=== PATIENT | male | born 1980 | race Caucasian/White ===

== ENCOUNTER 2018-12-22 09:14 | Emergency (ER) | payer OTHER, SELFPAY ==
[2018-12-22 09:14] VITALS: BP 156/87; PULSE 65; RESP 19; TEMP 36.5; O2SAT 100; BMI 25.1
--- NOTE | 2018-12-22 09:34 | RAD_ITS ---
STUDY: X-RAY CHEST REASON FOR EXAM: Male, 38 years old. 2 week history of productive cough. TECHNIQUE: PA and lateral views of the chest. COMPARISON: None. FINDINGS: The lungs are clear and expanded. There is no demonstrated pleural abnormality. Normal size heart. Normal mediastinum and chun. Normal visualized pulmonary arteries. Normal visualized aortic arch and descending thoracic aorta. Normal visualized thoracic spine. Normal visualized ribs, clavicles, and shoulders. There is no demonstrated abnormality of the visualized soft tissue structures of the upper abdomen. RAD/Chest PA and Lateral IMPRESSION: Normal x-ray examination of the chest. Electronically Signed: Germán Craig, at 10:47 EDT , Service support ,
[2018-12-22] MEDS: 0.9% Normal Saline 1,000 ML 1000 ML IV (09:45)
[2018-12-22 09:55] LABS: Bacteria 0 SEEN /hpf (None Seen); Mucous, Urine 0 SEEN /hpf (<or=2+); Red Blood Cells-Urine 0 SEEN /hpf (0-5); Squamous Epithelial Cells - UA 0 SEEN /hpf (0-5); White Blood Cells 0 SEEN /hpf (0-5)
[2018-12-22 09:59] LABS: Absolute Lymphocyte Count 2.33 X10^3/uL (0.83-4.51); Absolute Neutrophil Count 3.6 X10^3/uL (2.0-7.7); Basophil# 0.05 X10^3/uL; Basophil% 0.7 % (0-1); Eosinophil# 0.14 X10^3/uL; Eosinophils% 2.1 % (0-5); Hematocrit 50.3 % (40-54); Hemoglobin 17.2 g/dL (13.0-16.5); Lymphocyte # 2.33 X10^3/ul (4.0); Lymphocyte % 34.7 % (19-41); Mean Corp Hgb Conc 34.2 g/dL (32-36); Mean Corpuscular Hgb 31.1 pg (27.0-32.0); Mean Platelet Vol. 8.9 fl (6.2-12.0); Monocyte# 0.52 X10^3/uL; Monocyte% 7.7 % (0-10); NRBC Flagged by Analyzer 0 % (0-5); Neutrophil # 3.64 X10^3/uL (2.7-7.7); Neutrophil % 54.4 % (47-70); Platelet Count 265 K/mm3 (150-450); RBC Distribution Width CV 12.2 % (11.6-14.6); RBC Distribution Width SD 40.2 fl (35.1-43.9); Red Blood Count 5.53 M/mm3 (4.6-6.2); White Blood Count 6.7 K/mm3 (4.4-11.0)
[2018-12-22 10:01] LABS: Color, Urine Yellow (Yellow); Glucose, Dipstick Normal (Normal); Ketone-Dipstick Negative (Negative); Leukocyte Esterase-Dipstick Negative /ul (Negative); Nitrite-Dipstick Negative (Negative); Occult Blood-Urine Negative /ul (Negative); Protein-Dipstick Negative (Negative); Urine Bilirubin Dipstick Negative (Negative); Urine Clarity Sl. Cloudy (Clear); Urine Urobilinogen Normal (Normal); Urine pH 6.5 (5.0 - 8.0)
[2018-12-22 10:12] LABS: ALB/GLOB Ratio 1.3 RATIO (0.9-2.4); AST(SGOT) 22 U/L (15-37); Alanine Aminotransfer ALT/SGPT 40 U/L (16-61); Albumin, Serum 4.3 g/dL (3.2-5.0); Alkaline Phosphatase 86 U/L (45-117); Anion Gap 4 (5-15); BUN 13 mg/dL (7-18); BUN/Creat Ratio 11.9 RATIO (10-20); Calcium,Total 9.1 mg/dL (8.5-10.1); Chloride 106 mmol/L (98-107); Creatinine, Serum 1.09 mg/dL (0.70-1.30); EST Glomerular Filtration Rate 81 mL/min (>60); Est Glom Filt Rate - Afr Amer 98 mL/min (>60); Estimated Creatinine Clearance 95.81 ml/min; Globulin 3.4 g/dL (2.2-4.2); Glucose 107 mg/dL (74-106); Potassium 4.2 mmol/L (3.5-5.1); Protein, Total 7.7 g/dL (6.4-8.2); Sodium Level 141 mmol/L (136-145)
--- NOTE | 2018-12-22 10:51 | ED.VISSUMM ---
- ER Visit Summary Date of Service: 12/22/18 Chief Complaint: Weakness, nausea History of Present Illness: The patient is a 38 M with nausea. He states for the past 3 days he has had intermittent issues with weakness. He states he feels weak all over. No lateralizing symptoms. Denies slurred speech or facial droop. He feels mildly lightheaded. He tells me that last week he had a sinus infection but thought it was improving this week but then the episodes of weakness started. He has had a cough that is nonproductive. Denies any fevers. He has no other medical problems. Physical Examination: Vital signs are reviewed. HEENT exam unremarkable. Heart is regular rate and rhythm. Lungs are clear to auscultation bilaterally. Abdomen soft nontender. Extremities have no edema. Skin exam has no rashes. His neurologic exam is normal. I watched him ambulate and his ambulation is normal as well. Test Results: Laboratory studies are normal except for hemoglobin of 17.2. Glucose 107. Urinalysis normal. Chest x-ray per my interpretation reveals nothing acute. Emergency Department Course and Treatment: The patient was given a liter of IV fluids. Family was concerned that he may need a head scan due to this lightheadedness. He has a normal neurologic examination. His pupils are equal. I do feel that this is necessary at this time. He has a nonfocal examination with normal laboratory studies and chest x-ray. He will need to follow-up with the PCP if his symptoms occur as an outpatient. I will give him a PCP to follow-up with. Treatment Plan: [] Disposition: Discharge Impression: Weakness This note was generated with [employer] dictation software. It may contain incorrect words, spelling, and punctuation that were not noted in review of the chart prior to signing ED Disposition - Plan for ED Patient: Referrals: Care Physician,No Primary [Primary Care Provider] -
[2018-12-22 11:24] VITALS: BP 129/77; PULSE 62; RESP 15; O2SAT 98
== END 2018-12-22 11:26 | disposition home or self-care (01) ==
PROVIDERS: Emergency Provider Emergency Medicine
DX: R53.1 Weakness (principal); Z72.0 Tobacco use
CPT/HCPCS: 71046; 80053; 81001; 85025; 96360; 99283; J7030; A4216

== ENCOUNTER → 2018-12-23 | Outpatient (CLI) | payer OTHER, SELFPAY ==
[2018-12-22 09:14] VITALS: BMI 25.1
[2018-12-23 17:21] LABS: Absolute Lymphocyte Count 1.89 X10^3/uL (0.83-4.51); Basophil# 0.05 X10^3/uL; Basophil% 0.8 % (0-1); Eosinophil# 0.07 X10^3/uL; Eosinophils% 1.1 % (0-5); Hematocrit 47.4 % (40-54); Hemoglobin 16.2 g/dL (13.0-16.5); Lymphocyte # 1.89 X10^3/ul (4.0); Lymphocyte % 28.9 % (19-41); Mean Corp Hgb Conc 34.2 g/dL (32-36); Mean Corpuscular Hgb 31.2 pg (27.0-32.0); Mean Corpuscular Volume 91.3 fL (80-94); Monocyte# 0.55 X10^3/uL; Monocyte% 8.4 % (0-10); NRBC Flagged by Analyzer 0 % (0-5); Neutrophil # 3.95 X10^3/uL (2.7-7.7); Neutrophil % 60.3 % (47-70); Platelet Count 250 K/mm3 (150-450); Red Blood Count 5.19 M/mm3 (4.6-6.2); White Blood Count 6.5 K/mm3 (4.4-11.0)
[2018-12-23 17:47] LABS: Erythrocyte Sedimentation Rate < 1 mm/hr (0-15)
[2018-12-23 18:05] LABS: CRP < 2.90 mg/L (0.0-3.0); T4 Free Direct 0.91 ng/dL (0.76-1.46); Thyroid Stim Hormone (TSH) 1.06 uIU/mL (0.358-3.74)
[2018-12-24 10:04] LABS: CPK Total, Creatine Kinase 96 U/L (39-308)
[2018-12-26 16:29] LABS: EBV Acute VCA IgM < 36.0 U/mL (0.0-35.9); EBV Early Antigen IgG 42.1 U/mL (0.0-8.9); EBV Nuclear Antigen IgG > 600.0 U/mL (0.0-17.9)
== END | disposition home or self-care (01) ==
LOC: MTLAB 16:26 → LAB 16:55
PROVIDERS: Family Provider Nurse Practitioner; PCP Nurse Practitioner; Referring Provider Nurse Practitioner; Visit Provider Nurse Practitioner
DX: R53.1 Weakness (principal); G93.3 Postviral and related fatigue syndromes; R42 Dizziness and giddiness
CPT/HCPCS: 36415; 82550; 84439; 84443; 85025; 85652; 86140; 86663; 86664; 86665; 93225; 93226

== ENCOUNTER → 2019-01-06 | Outpatient (CLI) | payer OTHER, SELFPAY ==
[2018-12-22 09:14] VITALS: BMI 25.1
--- NOTE | 2019-01-06 07:46 | CT_ITS ---
STUDY: CT BRAIN WITHOUT CONTRAST REASON FOR EXAM: Male, 38 years old. Paresthesia. Tingling sensation in both arms and legs. RADIATION DOSAGE (If Supplied By Facility): CTDIvol = ( 44.99 ) mGy, DLP = ( 762.36 ) mGycm TECHNIQUE: Transaxial CT imaging of the brain was performed without administration of intravenous contrast material. Individualized dose optimization techniques were used for this CT. COMPARISON: No relevant priors. FINDINGS: Normal soft tissue structures. Normal calvarium. Normal size ventricles and extra-axial spaces for the patient's age. Normal white matter tracts of the cerebral hemispheres. Normal basal ganglia and thalami. Normal brainstem. Normal cerebellum. There is no intracranial hemorrhage. There are no findings of an acute ischemic infarction. There masses in both maxillary sinuses on the right. A mucous retention cyst versus polyps. There is complete opacification of the right sphenoid air cell with air-fluid level on the left. CT/Brain/Head without Contrast IMPRESSION: 1. Normal unenhanced CT scan of the brain. If there is continued concern for acute stroke, MRI is recommended. 2. Marked sinusitis. Electronically Signed: Bryce Delgado DO at 16:27 EDT Tel [phone], Service support ,
== END | disposition home or self-care (01) ==
LOC: CT 07:44
PROVIDERS: Family Provider Nurse Practitioner; PCP Nurse Practitioner; Referring Provider Nurse Practitioner; Visit Provider Nurse Practitioner
DX: R20.2 Paresthesia of skin (principal)
CPT/HCPCS: 70450

== ENCOUNTER → 2019-02-11 | Outpatient (CLI) | payer OTHER, SELFPAY | END | disposition home or self-care (01) | PROVIDERS: Family Provider Nurse Practitioner; PCP Nurse Practitioner; Referring Provider Otolaryngology; Visit Provider Otolaryngology | DX: J32.9 Chronic sinusitis, unspecified (principal) | CPT/HCPCS: 87070; 87205 ==

== ENCOUNTER 2019-02-14 01:00 | Emergency (ER) | payer OTHER, SELFPAY ==
[2019-02-14 01:01] VITALS: BP 177/115; PULSE 78; RESP 16; TEMP 36.9; O2SAT 97; BMI 27.7
--- NOTE | 2019-02-14 01:27 | CT_ITS ---
STUDY: CT BRAIN WITHOUT CONTRAST REASON FOR EXAM: Male, 38 years old. Headache, facial pain. RADIATION DOSAGE (If Supplied By Facility): CTDIvol = ( 44.99 ) mGy, DLP = ( 745.49 ) mGycm TECHNIQUE: Transaxial CT imaging of the brain was performed without administration of intravenous contrast material. Individualized dose optimization techniques were used for this CT. COMPARISON: 01/06/2019. FINDINGS: Normal soft tissue structures. Normal calvarium. Normal size ventricles and extra-axial spaces for the patient's age. Normal white matter tracts of the cerebral hemispheres. Normal basal ganglia and thalami. Normal brainstem. Normal cerebellum. There is no intracranial hemorrhage. There are no findings of an acute ischemic infarction. There is mucus retention cyst on the right with mucosal thickening on the left involving the bilateral maxillary sinuses. There is opacification of the right sphenoid sinus. CT/Brain/Head without Contrast IMPRESSION: Normal unenhanced CT scan of the brain. No acute intracranial hemorrhage or space-occupying lesion. Sequela of maxillary and sphenoid sinus disease. Electronically Signed: Fiona Nuno MD at 2:15 EST , Service support ,
--- NOTE | 2019-02-14 01:27 | CT_ITS ---
STUDY: CT MAXILLOFACIAL SINUSES REASON FOR EXAM: Male, 38 years old. Facial pain and headache. History of sinus/I surgery one week ago with balloon rhinoplasty. RADIATION DOSAGE (If Supplied By Facility): CTDIvol = ( 29.38 ) mGy, DLP = ( 393.19 ) mGycm TECHNIQUE: The patient was scanned in a multi detector CT scanner. High resolution axial imaging was performed without the administration of intravenous contrast material. Sagittal and coronal images were reconstructed. Individualized dose optimization techniques were used for this CT. COMPARISON: None. FINDINGS: FRONTAL SINUSES: Normal aeration, without mucosal inflammatory disease. ETHMOIDAL SINUSES: There is mucosal thickening involving the right ethmoid sinus. MAXILLARY SINUSES: Bilateral ground, lobular densities involving the maxillary sinuses suggestive of mucous retention cyst versus mucosal thickening. SPHENOIDAL SINUSES: There is complete opacification of the right sphenoid sinus. The left sphenoid sinus is clear. There is narrowing of the bilateral maxillary infundibuli due to underlying mucosal thickening. Otherwise normal uncinate processes, ethmoid bullae, and hiatus semilunaris. Normal bilateral middle turbinates. Normal bilateral inferior turbinates. Normal midline nasal septum. There is patency of the bilateral nasal airways. The visualized osseous structures are normal. The visualized bilateral orbital contents are normal. CT/Sinus/Facial Bone IMPRESSION: Sequela of the maxillary, sphenoid and ethmoidal sinus disease, more severe along the maxillary sinuses. Mild narrowing of the infundibula bilaterally with partial patency of the ostiomeatal complexes due to underlying mucosal thickening. Electronically Signed: Fiona Nuno MD at 2:18 EST , Service support ,
--- NOTE | 2019-02-14 01:28 | ED.VIS.GEN ---
History of Present Illness Chief Complaint: Headache Narrative: Patient is a 38-year-old male who presents with headache and pain behind his eyes. He is actually been having symptoms for 2 months. Family also complains of weakness. He has undergone an extensive outpatient work-up including testing for Guyon Núñez? syndrome and Lyme disease. He had a CT of the brain which showed sinusitis which they thought was causing his headache and facial pain. He actually had sinus surgery last week. However his symptoms have worsened since then. He complains of pain behind his eyes which is worse when he lays flat. He states that his eyes go bloodshot when I lay flat. The symptoms have been worse for 2 days. He has also been shaking. No fevers nausea vomiting diarrhea cough abdominal pain. They have been looking online and are concerned that he may have MS and want an MRI of the brain. They are also concerned that the sinusitis may have spread infection to his eyes or brain. Past Medical History - Allergies and Home Meds Allergies/Adverse Reactions: Allergies No Known Allergies Allergy (Verified 02/14/19 01:04) Primary Care Physician: Myra Smith NP-C [Primary Care Provider] - Past Medical History: - - Chronic sinusitis Surgical History: - - Sinus surgery Smoking Status: Former smoker Review of Systems All systems negative except as indicated General: Denies: Fever Cardiovascular: Denies: Chest pain Respiratory: Denies: Dyspnea Gastrointestinal: Denies: Nausea, Vomiting, Diarrhea Neurological: Reports: Headache, Weakness, - - Tremor Physical Exam Vital Signs/Narrative: Vital Signs Temp Pulse Resp BP Pulse Ox 02/14/19 01:01 98.4 F 78 16 177/115 H 97 Inital Vital Signs reviewed: Yes General: Well nourished Head: Normocephalic, Atraumatic Eyes: EOMI ENT: Moist mucous membranes Neck: Supple Cardiovascular: Regular rate, Regular rhythm Respiratory: No distress, CTA bilaterally Abdomen: Soft, Nontender Skin: Normal color Neurological: Alert, Oriented x3, Normal Strength, Normal Sensation, - - No focal or lateralizing neurological deficits Psychological: Tearful, - - Patient appears very anxious Diagnostic/Tx/Re-eval Impressions Brain CT 02/14/19 01:27 IMPRESSION: Normal unenhanced CT scan of the brain. No acute intracranial hemorrhage or space-occupying lesion. Sequela of maxillary and sphenoid sinus disease. Electronically Signed: Fiona Nuno MD at 2:15 EST , Service support , Facial/Sinus 02/14/19 01:27 IMPRESSION: Sequela of the maxillary, sphenoid and ethmoidal sinus disease, more severe along the maxillary sinuses. Mild narrowing of the infundibula bilaterally with partial patency of the ostiomeatal complexes due to underlying mucosal thickening. Electronically Signed: Fiona Nuno MD at 2:18 EST , Service support , 02/14/19 01:27 Brain/Head without Contrast [CT] Stat CT Sinus [Sinus/Facial Bone] [CT] Stat - Medical Decision Making Patient was symptomatically treated here with Toradol and Reglan and also given Ativan for anxiety. I explained to the patient that evaluation for MS as an outpatient work-up and is not an indication for a stat MRI in the emergency department. I also explained that given that he has had a quite extensive outpatient work-up for his symptoms of 2 months I am unlikely to be able to provide further diagnosis acutely from the emergency department but did advise that they continue to pursue an outpatient work-up. CTs of the head and facial bones were obtained to evaluate for any complications from the sinus surgery such as abscess. CTs as above unremarkable except for sinus disease. Patient feels much better on reevaluation. They are requesting a prescription to help with sleep and his tremor. He was given a short course of Ativan but advised this is not an ideal long-term medication. I discussed further outpatient work-up such as referral to neurology. All questions answered at bedside and patient discharged. ED Disposition - Plan for ED Patient: Disposition: Home or Assisted Living Diagnosis: Headache Instructions: HEADACHE, Unspecified Prescriptions: Lorazepam [Ativan] 1 mg PO TID PRN #6 tab PRN Reason: Anxiety Prescription Printed Referrals: Myra Smith, ROSALIA-C [Primary Care Provider] -
[2019-02-14] MEDS: Ketorolac 30 MG/ML Syringe IV (01:41)
[2019-02-14] MEDS: 0.9% Normal Saline 1,000 ML 999 ML IV (01:42)
[2019-02-14] MEDS: LORazepam 2 MG/ML Syringe 1 MG IV (01:42)
[2019-02-14] MEDS: Metoclopramide 10 MG/2 ML Vial IV (01:42)
[2019-02-14 02:33] VITALS: BP 148/60; PULSE 78; RESP 15; O2SAT 98
== END 2019-02-14 02:35 | disposition home or self-care (01) ==
PROVIDERS: Emergency Provider Emergency Medicine; Family Provider Nurse Practitioner; PCP Nurse Practitioner
DX: R51 Headache (principal); Z87.891 Personal history of nicotine dependence
CPT/HCPCS: 70450; 70486; 96361; 96374; 96375; 99283; J7030

== ENCOUNTER → 2019-03-24 11:25 | Outpatient (CLI) | payer OTHER, SELFPAY ==
--- NOTE | 2019-03-24 | CYSPIN_PTH ---
PATIENT: CAMILO CLARK LOC: [facility] U#:[id number] AGE/SX: 44/M ROOM: RE03/24/[address]: MACIE Ledesma : 1980 BED: DIS: SPEC #: [id number] RECD: 03/24/19 13:25 STATUS: ANA SADIQ #: [id number] NEVA: 03/24/19 00:[address]: Dhaval Herrera DEPT: CYTOLOGY RECD BY: Kojo Man ENTERED: 03/24/19 13:25 SP TYPE: CYSPIN FL OTHR DR: MACIE Claudio Tissues: Cerebrospinal Fluid Procedures: Pap Stain (control) Special Stain Group II Cytospin Fluid HEADER OPERATION: Lumbar puncture PRE-OP DIAGNOSIS: Paresthesias TISSUE SUBMITTED: Cerebrospinal fluid for cytology DIAGNOSIS CYTOLOGY Cerebrospinal fluid for cytology (cytospin): Negative for malignant cells. AM:carly 03/25/19 CYTOLOGY STUDY Slides are reviewed. CYTOLOGY GROSS Received is 4 ml of clear colorless fluid labeled with the patient's name and and designated per the requisition as CSF. Submitted for cytology preparation including. / carly 03/24/19 TC:5 [facility]: [id number]
[2019-03-24 11:45] VITALS: BP 135/93; PULSE 62; RESP 16; TEMP 37; O2SAT 100; BMI 27.2
--- NOTE | 2019-03-24 11:48 | RAD_ITS ---
PROCEDURE: Fluoroscopic guided Lumbar Puncture. DATE: March 24, 2019 CLINICAL INDICATION: Paresthesias. Hyperreflexia. PHYSICIAN: Germán Craig M.D. MEDICATIONS: 1% lidocaine administered subcutaneously for local anesthesia. ACCESS SITE: Lower posterior back. NEEDLE: 22-gauge spinal needle. SPECIMEN: Approximately 13.5 mL clear]CSF fluid. FLUOROSCOPY TIME (if supplied): (0:48) minutes/seconds COMPLICATIONS: None immediate. The risks, benefits, and alternatives to the procedure were explained to the patient. The specific risks of bleeding, infection, and neurovascular injury were detailed and accepted. Witnessed informed consent was obtained. The patient was placed on the fluoroscopic table in the prone position. The level for needle entry was determined and marked. The overlying skin was cleaned and prepped in the usual sterile fashion. 2% lidocaine was administered subcutaneously for local anesthesia. Under fluoroscopic guidance a 22-gauge spinal needle was advanced. The thecal sac was entered at the L2-L3 vertebral level. The inner stylet was removed. There was spontaneous flow of clear CSF fluid. The patient was placed in a reversed Trendelenburg position. Approximately 13.5 mL of cerebrospinal fluid was collected using gravity. The specimen was collected and submitted to the laboratory for further evaluation. The needle was withdrawn,. Hemostasis was achieved and a sterile dressing placed. The patient tolerated the procedure well without any immediate complications. The patient was placed supine with head elevated and returned to the floor in stable condition. RAD/Fluoro Guided Lumbar Puncture IMPRESSION: Successful fluoroscopic-guided lumbar puncture. Electronically Signed: Germán Craig, at 13:09 EST , Service support ,
[2019-03-24 12:32] VITALS: BP 130/87; PULSE 56; RESP 18; O2SAT 59
[2019-03-24 12:49] LABS: Cytology, Body Fluid / CSF SEE PATHOLOGY REPORT; Oligoclonal Banding REF LAB
[2019-03-24 12:57] LABS: Body Fluid Polynuclear WBC # 0.001 10^3/uL
[2019-03-24 13:24] LABS: Glucose Spinal Fluid 57 mg/dL (40-75)
[2019-03-24 13:30] VITALS: BP 122/77; PULSE 53; RESP 18; O2SAT 97
[2019-03-24 13:30] LABS: Appearance CSF (character) CLEAR (Clear); Auto B Fluid Analyzer BKGD Ct COUNTS W/IN LIMITS (W/IN LIMITS); CSF Color COLORLESS (Colorless); RBC Count, Spinal Fluid 9 /mm-3 (None seen); Tested Tube # 4; White Count, CSF 1 /mm-3 (0 - 5)
[2019-03-24 13:31] LABS: Body Fluid QC Type(s) BF3Q
[2019-03-25 10:02] LABS: Pathologist Review Reviewed
[2019-03-27 16:07] LABS: CSF Albumin 19 mg/dL (11-48); CSF IgG 1.9 mg/dL (0.0-8.6); CSF IgG Index 0.6 (0.0-0.7); IgG Serum 881 mg/dL (700-1600); IgG Synthesis Rate, CSF -1.5 mg/day (-9.9 TO +3.3); Serum Albumin 4.9 g/dL (3.5-5.5)
[2019-03-27 16:48] LABS: CSF:Serum Albumin Index 4 (0-8); Myelin Basic Protein, MBP 3.6 ng/mL (0.0-3.8)
== END ==
PROVIDERS: Family Provider Nurse Practitioner; PCP Nurse Practitioner
DX: R20.2 Paresthesia of skin (principal)
CPT/HCPCS: 36415; 62270; 77003; 82040; 82042; 82784; 82945; 83873; 84157; 88108; 88313; 89050; 89051

== ENCOUNTER 2019-05-20 16:58 | Emergency (ER) | payer OTHER, SELFPAY ==
[2019-03-24 11:45] VITALS: BMI 27.2
[2019-05-20 16:58] VITALS: BP 149/89; PULSE 78; RESP 17; TEMP 37.1; O2SAT 98; BMI 26.6
--- NOTE | 2019-05-20 17:41 | CT_ITS ---
STUDY: CTA HEAD AND NECK WITH CONTRAST REASON FOR EXAM: Male, 38 years old. Dizziness x 5 months when moving head, worse today. Balloon sinuplasty 02/2019. RADIATION DOSAGE (If Supplied By Facility): CTDIvol = ( 27.93 ) mGy, DLP = ( 1520.06 ) mGycm TECHNIQUE: CT angiography was performed with a multi-detector CT scanner. Data acquisition was obtained from the skull base through the vertex following intravenous administration of 100mL Isovue 370. MIP images were reconstructed from the axial data set. Post-processing of the angiographic images was performed, with multiplanar reformation and 3D reconstruction. Individualized dose optimization techniques were used for this CT. COMPARISON: No relevant priors. FINDINGS: Normal bilateral petrous carotid arteries. Normal right cavernous carotid artery with a normal supraclinoid bifurcation. Normal left cavernous carotid artery with a normal supraclinoid bifurcation. Normal right A1 segments of the anterior cerebral artery. Normal left A1 segments of the anterior cerebral artery. Normal intact anterior communicating artery (ACOM). Normal bilateral A2 segments of the anterior cerebral arteries. Normal right M1 and M2 segments of the middle cerebral arteries, with a normal M1 bifurcation. Normal left M1 and M2 segments of the middle cerebral arteries, with a normal M1 bifurcation. Normal right posterior communicating artery (PCOM). Normal left posterior communicating artery (PCOM). There is a small atretic left vertebral artery with a dominant right vertebral artery. Normal basilar artery with a normal basilar bifurcation. The visualized bilateral superior cerebellar (SCA) arteries are normal. Normal bilateral P1, P2 and visualized P3 segments of the posterior cerebral arteries. There is no demonstrated aneurysm of the igiugig of [place]. There is no demonstrated abnormality of the visualized brain. AORTIC ARCH: Normal visualized aortic arch. Normal origins of the brachiocephalic, left common carotid, and left subclavian arteries. RIGHT CAROTID ARTERIES: Normal right common carotid artery (CCA). Normal right common carotid bulb. Normal origin of the right internal carotid (ICA) artery without a hemodynamically significant stenosis. Normal visualized cervical portion of the right internal carotid artery. Normal origin of the right external carotid artery (ECA). LEFT CAROTID ARTERIES: Normal left common carotid artery (CCA). Normal left common carotid bulb. Normal origin of the left internal carotid (ICA) artery without a hemodynamically significant stenosis. Normal visualized cervical portion of the left internal carotid artery. Normal origin of the left external carotid artery (ECA). VERTEBRAL ARTERIES: There is enhancement within the bilateral vertebral arteries with a small left vertebral artery, and a dominant right vertebral artery. CT/CTA Head AND Neck W/ Contrast IMPRESSION: Normal CTA Head and neck with contrast. Electronically Signed: Efren Myles MD at 19:01 EST , Service support ,
[2019-05-20] MEDS: 0.9% Normal Saline 1,000 ML 1000 ML IV (18:00)
[2019-05-20] MEDS: Meclizine HCl 25 MG Tablet PO (18:01)
[2019-05-20 18:06] LABS: Absolute Lymphocyte Count 2.05 X10^3/uL (0.83-4.51); Absolute Neutrophil Count 4.4 X10^3/uL (2.0-7.7); Basophil# 0.03 X10^3/uL; Basophil% 0.4 % (0-1); Eosinophil# 0.15 X10^3/uL; Eosinophils% 2.1 % (0-5); Hematocrit 45.3 % (40-54); Hemoglobin 15.7 g/dL (13.0-16.5); Lymphocyte # 2.05 X10^3/ul (4.0); Lymphocyte % 28.3 % (19-41); Mean Corp Hgb Conc 34.7 g/dL (32-36); Mean Corpuscular Hgb 31.1 pg (27.0-32.0); Mean Corpuscular Volume 89.7 fL (80-94); Mean Platelet Vol. 8.8 fl (6.2-12.0); Monocyte# 0.56 X10^3/uL; Monocyte% 7.7 % (0-10); NRBC Flagged by Analyzer 0 % (0-5); Neutrophil # 4.43 X10^3/uL (2.7-7.7); Neutrophil % 61.1 % (47-70); Platelet Count 225 K/mm3 (150-450); RBC Distribution Width SD 39.2 fl (35.1-43.9); Red Blood Count 5.05 M/mm3 (4.6-6.2); White Blood Count 7.3 K/mm3 (4.4-11.0)
[2019-05-20 18:24] LABS: ALB/GLOB Ratio 1.2 RATIO (0.9-2.4); AST(SGOT) 19 U/L (15-37); Alanine Aminotransfer ALT/SGPT 38 U/L (16-61); Alkaline Phosphatase 84 U/L (45-117); Anion Gap 2 (5-15); BUN 18 mg/dL (7-18); BUN/Creat Ratio 15.4 RATIO (10-20); Calcium,Total 8.9 mg/dL (8.5-10.1); Chloride 106 mmol/L (98-107); Creatinine, Serum 1.17 mg/dL (0.70-1.30); EST Glomerular Filtration Rate 74 mL/min (>60); Est Glom Filt Rate - Afr Amer 90 mL/min (>60); Estimated Creatinine Clearance 92.07 ml/min; Globulin 3.2 g/dL (2.2-4.2); Glucose 107 mg/dL (74-106); Potassium 4.1 mmol/L (3.5-5.1); Protein, Total 7.2 g/dL (6.4-8.2); Sodium Level 139 mmol/L (136-145)
[2019-05-20 18:52] VITALS: BP 150/90; BP 152/90; BP 154/79; PULSE 78; PULSE 80
[2019-05-20 19:26] VITALS: PULSE 75; RESP 18; O2SAT 98
--- NOTE | 2019-05-20 19:50 | ED.RN ---
PT REPORTS NO IMPROVEMENT IN DIZZINESS WITH MECLIZINE. DR. CLARK INFORMED. WILL CONTINUE TO MONITOR.
--- NOTE | 2019-05-20 20:08 | ED.VISSUMM ---
- ER Visit Summary Date of Service: 05/20/19 Chief Complaint: Dizziness History of Present Illness: The patient is a 38 M who presents with dizziness that has been intermittent over the last 5 months. Patient states it is gotten worse over the past several days. Patient has had multiple tests including a stress test and echocardiogram that was done today. Patient followed up with his nurse practitioner at his primary care physician's office today. Patient was referred here for evaluation of his carotid arteries. Patient describes his dizziness as lightheaded. Patient states it is worse with certain positions. Patient states he also gets a funny smell when he gets dizzy. Physical Examination: Vital signs are stable. Patient is afebrile. Patient is in no acute distress. Pupils are equal, round, and reactive to light bilaterally. Extraocular muscles are intact. There is no nystagmus noted. Patient did get dizzy with lateral eye movement. Oral mucosa is pink and moist. Neck is supple. Trachea is midline. There is no JVD. Tympanic membranes were clear bilaterally. Heart was regular rate and rhythm. Lungs are clear and equal bilaterally. Abdomen is soft. Bowel sounds are normal. There is no tenderness. Cranial nerves II through XII are intact. There are no focal motor or sensory deficits noted. Test Results: CBC and comprehensive metabolic profile were within normal limits. Orthostatic vital signs were obtained were normal. CTA of the head and neck were obtained and were all within normal limits. There is some sinusitis noted. These were interpreted by the radiologist and reviewed by myself. Emergency Department Course and Treatment: Patient was given a dose of meclizine here. Patient had no improvement of his dizziness with this. Patient was given prescriptions for Flonase and Augmentin. Patient was given referral for ENT follow-up for his sinusitis. Patient was also instructed to follow-up with his primary care physician in 3 to 5 days. Patient understood and was agreeable with the plan. All questions were answered. Disposition: Discharge home Impression: 1. Sinusitis 2. Dizziness This note was generated with [employer] dictation software. It may contain incorrect words, spelling, and punctuation that were not noted in review of the chart prior to signing ED Disposition - Plan for ED Patient: Disposition: Home or Assisted Living Diagnosis: Sinusitis Instructions: SINUSITIS, Abx Tx Prescriptions: Amox/Clavulanate Tablet [Augmentin Tablet] 875 mg PO Q12H #20 tab Prescription Printed Fluticasone 0.05% [Flonase Nasal [place]] 1 spray NASAL BID #1 bottle Prescription Printed Referrals: Myra Smith NP-C [Primary Care Provider] - Cm Kaufman [NON-STAFF] - Destin Abernathy MD [STAFF PHYSICIAN] - 5-7 Days
[2019-05-20 20:32] VITALS: BP 144/93; PULSE 82; RESP 15; O2SAT 98
== END 2019-05-20 20:33 | disposition home or self-care (01) ==
PROVIDERS: Emergency Provider Emergency Medicine; PCP Nurse Practitioner
DX: R42 Dizziness and giddiness (principal); J32.9 Chronic sinusitis, unspecified; Z72.0 Tobacco use
CPT/HCPCS: 70496; 70498; 80053; 85025; 96360; 99285; J7030; Q9967; A4216

== ENCOUNTER → 2019-05-20 | Outpatient (CLI) | payer OTHER, SELFPAY ==
[2019-03-24 11:45] VITALS: BMI 27.2
--- NOTE | 2019-05-20 06:34 | ECHOD_ITS ---
Reason For Study: PALPITATIONS Procedure This was a 2D Doppler, Color Flow transthoracic echocardiogram. Exam performed in department. Left Ventricle Normal LV size. The estimated ejection fraction is 55 %. No evidence for diastolic dysfunction. No regional wall motion abnormalities noted. Right Ventricle Normal RV size. Normal systolic function. Atria Normal left atrium. Normal right atrium. No doppler evidence for ASD. Mitral Valve There is no mitral valve stenosis. Trivial mitral valve insufficiency. Tricuspid Valve There is no tricuspid stenosis. Unable to estimate RV systolic pressure due to insufficient tricuspid regurgitant envelope. Trivial tricuspid valve insufficiency. Aortic Valve Trisinus/trileaflet aortic valve. There is no aortic stenosis. Trivial aortic valve insufficiency. Pulmonic Valve There is no pulmonic valvular stenosis. No pulmonic valve insufficiency. Great Vessels Normal aortic root. Pericardium/Pleural No pericardial effusion. MMode/2D Measurements & Calculations LVIDd: 5.8 cm IVSd: 0.66 cm Ao root diam: 3.1 cm LVIDs: 4.1 cm LVPWd: 0.82 cm RVDd: 3.3 cm FS: 28.7 % LAV(MOD-bp): 41.5 ml LA A4 area: 15.2 cm2 LA dimension(2D): 3.5 cm LAV(MOD-bp) Indexed: 20.1 ml/m2 LAV(MOD-sp2): 41.5 ml LAV(MOD-sp4): 36.9 ml RA A4 area: 14.2 cm2 Time Measurements MV dec time: 0.29 sec Doppler Measurements & Calculations MV E max compa: 54.8 cm/sec Lat Peak E' Compa: 15.5 cm/sec Med Peak E' Compa: 9.4 cm/sec MV A max compa: 41.0 cm/sec E/E' lat: 3.5 E/E' med: 5.8 MV E/A: 1.3 Ao V2 max: 138.3 cm/sec LV V1 max: 108.6 cm/sec PA V2 max: 106.0 cm/sec Ao max P.7 mmHg LV V1 max P.7 mmHg TR max compa: 222.4 cm/sec TR max P.8 mmHg Interpretation Summary The estimated ejection fraction is 55 %. No evidence for diastolic dysfunction. Trivial tricuspid valve insufficiency. Trivial mitral valve insufficiency. Trivial aortic valve insufficiency. Ordering Physician: Myra Smith Referring Physician: Myra Smith Performed By: Darleen Castillo, OCTAVIACS, RVT
--- NOTE | 2019-05-20 13:37 | STRESSREP ---
Stress Test Report Date: 05/20/2019 Procedure: Exercise tolerance test/imaging study Indications: Chest pain Consent: Per the patient Procedure: The patient exercised on a Carlos protocol for 9 minutes and 30 seconds achieving a peak heart rate of 171 bpm (93 % predicted maximal heart rate) with a peak blood pressure 162/70 mmHg and a peak MET capacity of 10.9 METs. The baseline ECG demonstrated normal sinus rhythm. The peak exercise ECG demonstrated tachycardia with no significant ST-T changes diagnostic for ischemia. EKG during recovery revealed no significant ischemic changes [There were no significant cardiac dysrhythmias pretest, during exercise, or recovery]. The functional capacity was considered normal for age. Patient had 2/10 chest pain at rest that changed to 3/10 at peak exercise The examination was discontinued secondary to fatigue. Impression: 1. Technically adequate (percent predicted maximal heart rate greater than 85%) exercise tolerance test 2. Stress test is negative for exercise-induced EKG changes of ischemia 3. Patient did not have typical anginal chest pain with exercise. 4. Functional capacity is normal for age 5. Nuclear images pending Myocardial perfusion imaging study: Technique: The patient was injected with 11.8 mCi of technetium 99m Cardiolite and subsequently rest SPECT Cardiolite nuclear imaging was obtained in the horizontal long, vertical long, and short axis views. The patient exercised on a Carlos protocol. Please see above for details. The patient was injected with 33.7 mCi of technetium 99m Cardiolite and subsequently stress SPECT Cardiolite nuclear imaging was obtained in the horizontal long, vertical long, and short axis views. A gated Cardiolite study at peak stress was obtained. Interpretation: Rest and stress SPECT Cardiolite nuclear imaging status post realignment, normalization, and attenuation correction, demonstrates normal myocardial radioisotope uptake for attenuation correction. Prior to attenuation correction there is mild decrease in the radioisotope uptake in the inferior wall on both the rest and stress images. These findings are suggestive of diaphragmatic attenuation artifact. There is no evidence of significant ischemia or infarction. The gated Cardiolite study demonstrates no significant regional wall motion abnormalities. The reported LVEF is 55 %. Impression: 1. There is no evidence of significant ischemia or infarction. 2. The gated Cardiolite study reports an LVEF of 55 %. This note was generated with [employer] software. It may contain incorrect words, spelling, and punctuation that were not noted in checking the note before signing.
== END | disposition home or self-care (01) ==
PROVIDERS: PCP Nurse Practitioner; Referring Provider Nurse Practitioner; Visit Provider Nurse Practitioner
DX: R00.2 Palpitations (principal)
CPT/HCPCS: 78452; 93017; 93306; A9500; A4216

== ENCOUNTER → 2019-05-28 | Outpatient (REF) | payer OTHER, SELFPAY ==
[2019-05-26 09:40] VITALS: BMI 26.7
== END | disposition home or self-care (01) ==
LOC: CVS 10:38
PROVIDERS: PCP Nurse Practitioner; Referring Provider Internal Medicine Cardiovascular Disease; Visit Provider Internal Medicine Cardiovascular Disease
DX: R00.2 Palpitations (principal)
CPT/HCPCS: 93271

== ENCOUNTER → 2019-06-08 | Outpatient (CLI) | payer OTHER, SELFPAY ==
[2019-05-26 09:40] VITALS: BMI 26.7
[2019-06-08 12:45] LABS: Erythrocyte Sedimentation Rate 1 mm/hr (0-15)
[2019-06-08 12:48] LABS: Absolute Lymphocyte Count 1.77 X10^3/uL (0.83-4.51); Absolute Neutrophil Count 2.4 X10^3/uL (2.0-7.7); Basophil# 0.03 X10^3/uL; Basophil% 0.6 % (0-1); Eosinophil# 0.13 X10^3/uL; Eosinophils% 2.7 % (0-5); Hematocrit 47.4 % (40-54); Hemoglobin 16.4 g/dL (13.0-16.5); Lymphocyte # 1.77 X10^3/ul (4.0); Mean Corp Hgb Conc 34.6 g/dL (32-36); Mean Corpuscular Hgb 31.7 pg (27.0-32.0); Mean Corpuscular Volume 91.5 fL (80-94); Mean Platelet Vol. 9.2 fl (6.2-12.0); Monocyte# 0.44 X10^3/uL; Monocyte% 9.2 % (0-10); NRBC Flagged by Analyzer 0 % (0-5); Neutrophil % 50.1 % (47-70); Platelet Count 240 K/mm3 (150-450); RBC Distribution Width SD 39.8 fl (35.1-43.9); Red Blood Count 5.18 M/mm3 (4.6-6.2); White Blood Count 4.8 K/mm3 (4.4-11.0)
[2019-06-08 13:13] LABS: ALB/GLOB Ratio 1.3 RATIO (0.9-2.4); AST(SGOT) 43 U/L (15-37); Alanine Aminotransfer ALT/SGPT 117 U/L (16-61); Albumin, Serum 4.3 g/dL (3.2-5.0); Alkaline Phosphatase 83 U/L (45-117); Anion Gap 8 (5-15); BUN 18 mg/dL (7-18); BUN/Creat Ratio 18.8 RATIO (10-20); CPK Total, Creatine Kinase 266 U/L (39-308); CRP < 2.90 mg/L (0.0-3.0); Calcium,Total 9.1 mg/dL (8.5-10.1); Chloride 105 mmol/L (98-107); Creatinine, Serum 0.96 mg/dL (0.70-1.30); EST Glomerular Filtration Rate 94 mL/min (>60); Est Glom Filt Rate - Afr Amer 113 mL/min (>60); Globulin 3.4 g/dL (2.2-4.2); Glucose 86 mg/dL (74-106); Potassium 4.2 mmol/L (3.5-5.1); Protein, Total 7.7 g/dL (6.4-8.2); Rheumatoid Factor < 10.0 IU/mL (<15); Sodium Level 141 mmol/L (136-145)
[2019-06-09 10:18] LABS: ANTINUCLEAR ANTIBODIES DIRECT Negative (Negative)
[2019-06-10 12:07] LABS: Lyme IgG P18 Ab Absent (.); Lyme IgG P23 Ab Absent (.); Lyme IgG P28 Ab Absent (.); Lyme IgG P30 Ab Absent (.); Lyme IgG P39 Ab Absent (.); Lyme IgG P41 Ab Absent (.); Lyme IgG P45 Ab Absent (.); Lyme IgG P58 Ab Absent (.); Lyme IgG P66 Ab Absent (.); Lyme IgG P93 Ab Absent (.); Lyme IgM P23 Ab Absent (.); Lyme IgM P39 Ab Absent (.); Lyme IgM P41 Ab Absent (.)
[2019-06-10 16:37] LABS: CCP IgG Antibodies 8 units (0-19); Lyme IgG WB Interpretation Negative (.); Lyme IgM WB Interpretation Negative (.)
== END | disposition home or self-care (01) ==
PROVIDERS: PCP Nurse Practitioner; Referring Provider Internal Medicine Rheumatology; Visit Provider Internal Medicine Rheumatology
DX: Q66.70 Congenital pes cavus, unspecified foot (principal); R51 Headache; R53.83 Other fatigue
CPT/HCPCS: 36415; 80053; 82085; 82550; 85025; 85652; 86038; 86140; 86200; 86431; 86617